=== PATIENT | male | born 1950 | race Caucasian/White ===

== ENCOUNTER 2016-10-03 11:42 | Emergency (ER) | payer MEDICARE ==
[~2016-10-03] VITALS: Ht 180.3 cm; Wt 79.3 kg
[2016-10-03 11:44] VITALS: BP 129/66; PULSE 77; RESP 15; TEMP 98.1; O2SAT 95
[2016-10-03] MEDS ORDERED: ADVA115A INH (11:59)
[2016-10-03] MEDS ORDERED: AMOX875T2 PO (11:59)
[2016-10-03] MEDS ORDERED: METO25TA3 PO (11:59)
[2016-10-03] MEDS ORDERED: ROSU1TAB8 PO (11:59)
[2016-10-03] MEDS ORDERED: PHENYLEPH/NS 1000 MCG/10 ML SYR IV ONE (12:00)
[2016-10-03] MEDS ORDERED: PROPOFOL 200 MG/20 ML AMP IV ONE (12:00)
[2016-10-03] MEDS ORDERED: NEOSTIGMINE 3 MG/3 ML SYR IV ONE (12:00)
[2016-10-03] MEDS ORDERED: ONDANSETRON HCL 4 MG/2 ML VIAL IV PUSH ONE (12:00)
[2016-10-03] MEDS ORDERED: SODIUM CHLOR 0.9% 1000 ML INJ 1,000 ML IV ONE (12:15)
[2016-10-03 12:55] LABS: AUTOMATED NEUTROPHIL # 4.9 TH/MM3 (1.8-7.7); BASOPHIL % 0.4 % (0.0-2.0); EOSINOPHIL % 0.7 % (0.0-4.0); HEMATOCRIT 36.9 % (39.0-51.0); HEMO FLAGS DIFF FINAL; LYMPH % 16.4 % (9.0-44.0); MEAN CELL VOLUME 99.3 FL (80.0-100.0); MEAN CORPUSCULAR HEMOGLOBIN 34.6 PG (27.0-34.0); MEAN CORPUSCULAR HGB CONC 34.8 % (32.0-36.0); MONO % 6.3 % (0.0-8.0); NEUT % 76.2 % (16.0-70.0); PLATELET COUNT 111 TH/MM3 (150-450); RED BLOOD COUNT 3.71 MIL/MM3 (4.50-5.90); RED CELL DISTRIBUTION WIDTH 13.4 % (11.6-17.2); WHITE BLOOD COUNT 6.4 TH/MM3 (4.0-11.0)
[2016-10-03 13:11] LABS: ANION GAP 9 MEQ/L (5-15); AST (GOT) 6 U/L (15-37); BICARBONATE 25.6 MEQ/L (21.0-32.0); BLOOD UREA NITROGEN 13 MG/DL (7-18); CHLORIDE 99 MEQ/L (98-107); GLOMERULAR FILTRATION RATE 48 ML/MIN (>89); POTASSIUM 3.8 MEQ/L (3.5-5.1); SODIUM (NA) 134 MEQ/L (136-145)
[2016-10-03 13:16] LABS: ALKALINE PHOSPHATASE 110 U/L (45-117); ALT (GPT) 13 U/L (12-78); TOTAL BILIRUBIN ADULT 0.9 MG/DL (0.2-1.0)
--- NOTE | 2016-10-03 13:21 | PD ---
HPI Chief Complaint: Abdominal Pain Time Seen by Provider: 12:11 Travel History International Travel<30 days: No Contact w/Intl Traveler<30days: No Traveled to known affect area: No History of Present Illness HPI Is a 66-year-old man presents emergent department for abdominal pain fevers and chills ongoing for 4 days or so. He states he was feeling well all for 5 days ago. He went out to dinner any more than he typically does. The next day had bloating and lower abdominal discomfort and thought he was constipated. Had a normal bowel movement the day before. Symptoms continued and he had some fevers and chills. He took some magnesium citrate as well as started some Augmentin, prescribed by Dr. Monroy, who is the patient's son-in-law. He felt a little bit improved after good response to magnesium citrate however he continues to have lower abdominal discomfort. Lower abdominal skin but worse on the right. He was positive for flu 2 weeks ago. About a month or so ago he also had a AAA repair done endovascularly in [facility]. No other complaints. History Past Medical History Narrative Medical AAA, status post endovascular para 1 month ago CVA, 2010, with expressive aphasia residual Renal stent CAD, history of CABG, bovine aortic valve replacement Hypertension Hyperlipidemia Tetanus Vaccination: > 5 Years Influenza Vaccination: Yes Social History Alcohol Use: Yes Tobacco Use: Yes Allergies-Medications (Allergen,Severity, Reaction): Coded Allergies: No Known Allergies (Unverified , 10/03/16) Reported Meds & Prescriptions Reported Meds & Active Scripts Active Reported Advair Hfa 12 GM Inh (Fluticasone-Salmeterol 12 GM Inh) 115-21 Mcg/Act Aer 2 Puff INH BID Metoprolol Tartrate 25 Mg Tab 25 Mg PO BID Rosuvastatin (Rosuvastatin Calcium) 20 Mg Tab 20 Mg PO DAILY Amoxicillin-Clavulanate 875-125 mg Tab 875 Mg PO BID not for use in CrCl <30 mL/minute Review of Systems Except as stated in HPI: all other systems reviewed are Neg Physical Exam Narrative GENERAL: Well-appearing 66 year-old man, no acute distress. SKIN: Warm and dry. CARDIOVASCULAR: Regular rate and rhythm. No murmur appreciated. RESPIRATORY: No accessory muscle use. Clear to auscultation. Breath sounds equal bilaterally. GASTROINTESTINAL: Abdomen is flat and soft. His a pretty good amount and guarding in the right lower quadrant. Some in the left as well. MUSCULOSKELETAL: No obvious deformities. No edema. NEUROLOGICAL: Awake and alert. No obvious cranial nerve deficits. Motor grossly within normal limits. Normal speech. PSYCHIATRIC: Appropriate mood and affect; insight and judgment normal. Data Data Last Documented VS Vital Signs Date Time Temp Pulse Resp B/P Pulse Ox O2 Delivery O2 Flow Rate FiO2 10/03/16 13:57 98.0 81 17 120/78 99 Room Air Orders Complete Blood Count With Diff (10/03/16 12:14) Comprehensive Metabolic Panel (10/03/16 12:14) Lipase (10/03/16 12:14) Lactic Acid (10/03/16 12:14) Urinalysis - C+S If Indicated (10/03/16 12:14) Iv Access Insert/Monitor (10/03/16 12:14) Sodium Chlor 0.9% 1000 Ml Inj (Ns 1000 M (10/03/16 12:15) Ct Abd/Pel W Iv Contrast(Rout) (10/03/16 ) Iohexol 350 Inj (Omnipaque 350 Inj) (10/03/16 14:11) Admit Order (Ed Use Only) (10/03/16 ) Labs Laboratory Tests Test 10/03/16 12:20 White Blood Count 6.4 TH/MM3 Red Blood Count 3.71 MIL/MM3 Hemoglobin 12.8 GM/DL Hematocrit 36.9 % Mean Corpuscular Volume 99.3 FL Mean Corpuscular Hemoglobin 34.6 PG Mean Corpuscular Hemoglobin 34.8 % Concent Red Cell Distribution Width 13.4 % Platelet Count 111 TH/MM3 Mean Platelet Volume 8.2 FL Neutrophils (%) (Auto) 76.2 % Lymphocytes (%) (Auto) 16.4 % Monocytes (%) (Auto) 6.3 % Eosinophils (%) (Auto) 0.7 % Basophils (%) (Auto) 0.4 % Neutrophils # (Auto) 4.9 TH/MM3 Lymphocytes # (Auto) 1.0 TH/MM3 Monocytes # (Auto) 0.4 TH/MM3 Eosinophils # (Auto) 0.0 TH/MM3 Basophils # (Auto) 0.0 TH/MM3 CBC Comment DIFF FINAL Differential Comment Sodium Level 134 MEQ/L Potassium Level 3.8 MEQ/L Chloride Level 99 MEQ/L Carbon Dioxide Level 25.6 MEQ/L Anion Gap 9 MEQ/L Blood Urea Nitrogen 13 MG/DL Creatinine 1.48 MG/DL Estimat Glomerular Filtration 48 ML/MIN Rate Random Glucose 102 MG/DL Lactic Acid Level 1.2 mmol/L Calcium Level 8.5 MG/DL Total Bilirubin 0.9 MG/DL Aspartate Amino Transf 6 U/L (AST/SGOT) Alanine Aminotransferase 13 U/L (ALT/SGPT) Alkaline Phosphatase 110 U/L Total Protein 7.3 GM/DL Albumin 3.2 GM/DL Lipase 102 U/L [facility] Medical Decision Making Medical Screen Exam Complete: Yes Emergency Medical Condition: Yes Interpretation(s) LABS: CBC remarkable for mild anemia. CMP is unremarkable. Creatinine 1.4 Lact[address] abdomen and pelvis: Acute appendicitis. Differential Diagnosis Appendicitis, diverticulitis, abscess, UTI, other Narrative Course Medical decision making 66-year-old male with lower abdominal discomfort, bloating, stool changes, fevers and chills, with right lower quadrant tenderness suggestive of either diverticulitis or appendicitis. We'll check labs, CT, fluids, reassess. FINAL: Patient with acute appendicitis. No evidence of perforation or abscess. Spoke with Dr. Solo, diagnostic cardiac sonographer for general surgery. We'll admit patient. Diagnosis Primary Impression: Acute appendicitis Qualified Code: K35.3 - Acute appendicitis with localized peritonitis Ellis Ferro MD Oct 03, 2016 13:21
[2016-10-03 13:57] VITALS: BP 120/78; PULSE 81; RESP 17; TEMP 98; O2SAT 99
[2016-10-03] MEDS ORDERED: IOHEXOL 350 MG/ML 10 ML VIAL (for RAD DIAG) IV ONE (14:11)
--- NOTE | 2016-10-03 14:39 | RADRPT ---
EXAM DATE/TIME: 10/03/2016 14:04 [place] COMPARISON: No previous studies available for comparison. INDICATIONS: Abdominal pain IV CONTRAST: 85 cc Omnipaque 350 (iohexol) IV ORAL CONTRAST: No oral contrast ingested. RADIATION DOSE: 8.56 CTDIvol (mGy) MEDICAL HISTORY: Cardiovascular disease. Hypertension. SURGICAL HISTORY: Non-responsive. AAA repair ENCOUNTER: Initial ACUITY: 1 day PAIN SCALE: 6/10 LOCATION: Right middle TECHNIQUE: Volumetric scanning of the abdomen and pelvis was performed. Using automated exposure control and ad justment of the mA and/or kV according to patient size, radiation dose was kept as low as reasonably achievable to obtain optimal diagnostic quality images. FINDINGS: CT scan of the abdomen and pelvis was performed with administration of IV and oral contrast. There i s significant inflammatory stranding in and around the appendix. The appendix is slightly thickened and fluid filled concerning for appendicitis. The adjacent cecum is unremarkable. Terminal ileum is unremarkable. The right kidney is atrophic. Left kidney is unremarkable. The liver, spleen, gallbladder and pancr eas are unremarkable. Patient has had aortic stent graft in good position. There is arthritic change of both hips. CONCLUSION: Significant inflammatory stranding around the appendix with some fluid in the appendix concerning for appendicitis. No evidence of perforation or abscess but there is some inflammatory stranding. Ellis Hirsch MD on October 03, 2016 at 14:23 Board Certified Radiologist. This report was verified electronically.
[2016-10-03] MEDS ORDERED: PIPERACIL-TAZO 3.375 GM PREMIX 50 ML IV ONE (15:00)
[2016-10-03 15:46] LABS: BLOOD, URINE NEG (NEG); COMMENT (UR) CULT NOT INDICATED; CULTURE IF INDICATED CULT NOT INDICATED; GLUCOSE,URINE NEG (NEG); HYALINE CAST, URINE 5 /lpf (RARE); KETONE, URINE 10 mg/dL (NEG); MUCUS URINE FEW /lpf (OCC); NITRITE,URINE NEG (NEG); URINE COLOR YELLOW (YELLW/STRAW)
[2016-10-03 15:47] VITALS: BP 148/70; PULSE 96; RESP 17; TEMP 97.8; O2SAT 99
[2016-10-03 16:58] VITALS: BP 123/66; PULSE 98; RESP 18; O2SAT 98
[2016-10-03] MEDS ORDERED: BUPIVACAINE/EPINEPHRINE 0.5% PF 30 ML VIAL ONE (17:20)
--- NOTE | 2016-10-03 17:35 | HHI.HP ---
HPI Service General surgery Primary Care Physician Olaf Monroy MD Admission Diagnosis acute appendicitis Chief Complaint: Abdominal pain History of Present Illness The patient is a 66-year-old male who presents with abdominal pain for approximately 4 days. Initially, who was in both lower quadrants and he was placed on Augmentin by Dr. Monroy who is his primary physician and his father-in- law. The patient thought that he was constipated and took magnesium citrate. After a couple of days the pain was localized in the right lower quadrant and it has persisted and therefore he presented to the emergency department. He has had no surgery on his abdomen. He does have an extensive cardiovascular disease history and recently underwent endovascular AAA repair. He has had a CVA as well as a CABG and AVR. He is not on blood thinners. Review of Systems Constitutional: COMPLAINS OF: Fever, Chills Eyes: DENIES: Eye inflammation, Eye pain Respiratory: DENIES: Cough, Sputum production Cardiovascular: DENIES: Chest pain, Palpitations Gastrointestinal: COMPLAINS OF: Abdominal pain, Nausea Integumentary: DENIES: Pruritus, Rash Past Family Social History Past Medical History CVA Hyperlipidemia Hypertension Coronary artery disease Alcohol abuse Tobacco use Past Surgical History Renal stent Endovascular AAA repair CABG Aortic valve replacement Reported Medications Reported Meds & Active Scripts Active Reported Advair Hfa 12 GM Inh (Fluticasone-Salmeterol 12 GM Inh) 115-21 Mcg/Act Aer 2 Puff INH BID Metoprolol Tartrate 25 Mg Tab 25 Mg PO BID Rosuvastatin (Rosuvastatin Calcium) 20 Mg Tab 20 Mg PO DAILY Amoxicillin-Clavulanate 875-125 mg Tab 875 Mg PO BID not for use in CrCl <30 mL/minute Allergies: Coded Allergies: No Known Allergies (Unverified , 10/03/16) Family History Noncontributory Social History The patient reportedly drinks a significant amount of liquor daily. He smokes about a pack cigarettes daily. Physical Exam Vital Signs Vital Signs Date Time Temp Pulse Resp B/P Pulse Ox O2 Delivery O2 Flow Rate FiO2 10/03/16 16:58 98 18 123/66 98 Room Air 10/03/16 15:47 97.8 96 17 148/70 99 Room Air 10/03/16 13:57 98.0 81 17 120/78 99 Room Air 10/03/16 12:03 17 10/03/16 11:44 98.1 77 15 129/66 95 Physical Exam GENERAL: Awake and alert. No acute distress. Cooperative. HEAD: Normocephalic. Atraumatic. EYES: Pupils equal round and reactive to light bilaterally. No scleral icterus. CHEST: Lungs clear to auscultation bilaterally with no wheezing or rhonchi. No respiratory distress. CARDIOVASCULAR: Regular rate and rhythm. ABDOMEN: Positive rebound tenderness in the right lower quadrant. Otherwise soft and nontender. EXTREMITIES: No cyanosis or edema. SKIN: Warm, dry, nonjaundiced. Laboratory Laboratory Tests Test 10/03/16 10/03/16 12:20 15:00 White Blood Count 6.4 Red Blood Count 3.71 Hemoglobin 12.8 Hematocrit 36.9 Mean Corpuscular Volume 99.3 Mean Corpuscular Hemoglobin 34.6 Mean Corpuscular Hemoglobin 34.8 Concent Red Cell Distribution Width 13.4 Platelet Count 111 Mean Platelet Volume 8.2 Neutrophils (%) (Auto) 76.2 Lymphocytes (%) (Auto) 16.4 Monocytes (%) (Auto) 6.3 Eosinophils (%) (Auto) 0.7 Basophils (%) (Auto) 0.4 Neutrophils # (Auto) 4.9 Lymphocytes # (Auto) 1.0 Monocytes # (Auto) 0.4 Eosinophils # (Auto) 0.0 Basophils # (Auto) 0.0 CBC Comment DIFF FINAL Differential Comment Sodium Level 134 Potassium Level 3.8 Chloride Level 99 Carbon Dioxide Level 25.6 Anion Gap 9 Blood Urea Nitrogen 13 Creatinine 1.48 Estimat Glomerular Filtration 48 Rate Random Glucose 102 Lactic Acid Level 1.2 Calcium Level 8.5 Total Bilirubin 0.9 Aspartate Amino Transf 6 (AST/SGOT) Alanine Aminotransferase 13 (ALT/SGPT) Alkaline Phosphatase 110 Total Protein 7.3 Albumin 3.2 Lipase 102 Urine Color YELLOW Urine Turbidity CLEAR Urine pH 6.0 Urine Specific [place] 1.017 Urine Protein TRACE Urine Glucose (UA) NEG Urine Ketones 10 Urine Occult Blood NEG Urine Nitrite NEG Urine Bilirubin NEG Urine Urobilinogen LESS THAN 2.0 Urine Leukocyte Esterase NEG Urine RBC LESS THAN 1 Urine WBC LESS THAN 1 Urine Hyaline Casts 5 Urine Mucus FEW Microscopic Urinalysis Comment CULT NOT INDICATED Result Diagram: 10/03/16 1220 10/03/16 1220 Imaging Last Impressions Abdomen/Pelvis CT 10/03/16 0000 Signed Impressions: Service Date/Time: Monday, October 03, 2016 14:04 - CONCLUSION: Significant inflammatory stranding around the appendix with some fluid in the appendix concerning for appendicitis. No evidence of perforation or abscess but there is some inflammatory stranding. Ellis Hirsch MD Assessment and Plan Assessment and Plan The patient is a 66-year-old male with about 4 days of abdominal pain and evaluation consistent with acute appendicitis. There is no obvious abscess or phlegmon present. He does have significant cardiovascular disease. However, I would recommend to go ahead and proceed with laparoscopic, possible open appendectomy. I discussed the case with Dr. Monroy who agrees. Hopefully, he' ll be able to be discharged home tomorrow. Agustin Solo MD Oct 03, 2016 17:35
[2016-10-03] MEDS ORDERED: ZOLPIDEM TARTRATE 5 MG TAB PO PRN (17:45)
[2016-10-03] MEDS ORDERED: SODIUM CHLORIDE 0.9% FLUSH 5 ML FLUSH FLUSH PRN (17:45)
[2016-10-03] MEDS ORDERED: SENNOSIDES 8.6 MG TAB PO PRN (17:45)
[2016-10-03] MEDS ORDERED: NALOXONE HCL 0.4 MG/ML AMP IV PRN (17:45)
[2016-10-03] MEDS ORDERED: ONDANSETRON HCL 4 MG/2 ML VIAL IVP PRN (17:45)
[2016-10-03] MEDS ORDERED: ACETAMINOPHEN 325 MG TAB PO PRN (17:45)
[2016-10-03] MEDS ORDERED: BISACODYL 10 MG SUPP PR PRN (17:45)
[2016-10-03] MEDS ORDERED: MAGNESIUM HYDROXIDE SUSP 30 ML CUP PO PRN (17:45)
--- NOTE | 2016-10-03 17:52 | HHI.HP ---
History of Present Illness Primary Care Physician Olaf Monroy MD Admission Diagnosis acute appendicitis Diagnoses: History of Present Illness 66 Y CM. FOUR DAYS OF ABD PAIN. I STARTED HIM ON AUGMENTIN FOR DIVERTICULITIS, AND MAG CITRATE FOR CONSTIP. SENT TO ER FOLLOWING DAY W FINDINGS BELOW. D/W DR PARNELL. SURGEON JUST CALLED ME AND AGREE W EMERGENT SURGERY. D/W ETOH AND TOBACOISM HX. Review of Systems Constitutional: COMPLAINS OF: Fever, Chills Respiratory: COMPLAINS OF: Cough, Wheezing Gastrointestinal: COMPLAINS OF: Constipation, Nausea Except as stated in HPI: all other systems reviewed are Neg Past Family Social History Allergies: Coded Allergies: No Known Allergies (Unverified , 10/03/16) Past Medical History Past Medical History Narrative Medical AAA, status post endovascular para 1 month ago CVA, 2010, with expressive aphasia residual Renal stent CAD, history of CABG, bovine aortic valve replacement Hypertension Hyperlipidemia Tetanus Vaccination: > 5 Years Influenza Vaccination: Yes Social History Alcohol Use: Yes Tobacco Use: Yes Allergies-Medications Allergies-Medications (Allergen,Severity, Reaction): Coded Allergies: No Known Allergies (Unverified , 10/03/16) Reported Meds & Prescriptions Reported Meds & Active Scripts Active Reported Advair Hfa 12 GM Inh (Fluticasone-Salmeterol 12 GM Inh) 115-21 Mcg/Act Aer 2 Puff INH BID Metoprolol Tartrate 25 Mg Tab 25 Mg PO BID Rosuvastatin (Rosuvastatin Calcium) 20 Mg Tab 20 Mg PO DAILY Amoxicillin-Clavulanate 875-125 mg Tab 875 Mg PO BID not for use in CrCl <30 mL/minute Physical Exam Vital Signs Vital Signs Date Time Temp Pulse Resp B/P Pulse Ox O2 Delivery O2 Flow Rate FiO2 10/03/16 16:58 98 18 123/66 98 Room Air 10/03/16 15:47 97.8 96 17 148/70 99 Room Air 10/03/16 13:57 98.0 81 17 120/78 99 Room Air 10/03/16 12:03 17 10/03/16 11:44 98.1 77 15 129/66 95 Physical Exam GENERAL: This is a well-nourished, well-developed patient, in no apparent distress. SKIN: No rashes, ecchymoses or lesions. Cool and dry. HEAD: Atraumatic. Normocephalic. No temporal or scalp tenderness. EYES: Pupils equal round and reactive. Extraocular motions intact. No scleral icterus. No injection or drainage. ENT: Nose without bleeding, purulent drainage or septal hematoma. Throat without erythema, tonsillar hypertrophy or exudate. Uvula midline. Airway patent. NECK: Trachea midline. No JVD or lymphadenopathy. Supple, nontender, no meningeal signs. CARDIOVASCULAR: Regular rate and rhythm without murmurs, gallops, or rubs. RESPIRATORY: Clear to auscultation. Breath sounds equal bilaterally. No wheezes , rales, or rhonchi. GASTROINTESTINAL: Abdomen soft, TTP, POS R/G MUSCULOSKELETAL: Extremities without clubbing, cyanosis, or edema. No joint tenderness, effusion, or edema noted. No calf tenderness. Negative Homans sign bilaterally. NEUROLOGICAL: Awake and alert. Cranial nerves II through XII intact. Motor and sensory grossly within normal limits. Five out of 5 muscle strength in all muscle groups. Normal speech. Laboratory Laboratory Tests Test 10/03/16 10/03/16 12:20 15:00 White Blood Count 6.4 Red Blood Count 3.71 Hemoglobin 12.8 Hematocrit 36.9 Mean Corpuscular Volume 99.3 Mean Corpuscular Hemoglobin 34.6 Mean Corpuscular Hemoglobin 34.8 Concent Red Cell Distribution Width 13.4 Platelet Count 111 Mean Platelet Volume 8.2 Neutrophils (%) (Auto) 76.2 Lymphocytes (%) (Auto) 16.4 Monocytes (%) (Auto) 6.3 Eosinophils (%) (Auto) 0.7 Basophils (%) (Auto) 0.4 Neutrophils # (Auto) 4.9 Lymphocytes # (Auto) 1.0 Monocytes # (Auto) 0.4 Eosinophils # (Auto) 0.0 Basophils # (Auto) 0.0 CBC Comment DIFF FINAL Differential Comment Sodium Level 134 Potassium Level 3.8 Chloride Level 99 Carbon Dioxide Level 25.6 Anion Gap 9 Blood Urea Nitrogen 13 Creatinine 1.48 Estimat Glomerular Filtration 48 Rate Random Glucose 102 Lactic Acid Level 1.2 Calcium Level 8.5 Total Bilirubin 0.9 Aspartate Amino Transf 6 (AST/SGOT) Alanine Aminotransferase 13 (ALT/SGPT) Alkaline Phosphatase 110 Total Protein 7.3 Albumin 3.2 Lipase 102 Urine Color YELLOW Urine Turbidity CLEAR Urine pH 6.0 Urine Specific [place] 1.017 Urine Protein TRACE Urine Glucose (UA) NEG Urine Ketones 10 Urine Occult Blood NEG Urine Nitrite NEG Urine Bilirubin NEG Urine Urobilinogen LESS THAN 2.0 Urine Leukocyte Esterase NEG Urine RBC LESS THAN 1 Urine WBC LESS THAN 1 Urine Hyaline Casts 5 Urine Mucus FEW Microscopic Urinalysis Comment CULT NOT INDICATED Result Diagram: 10/03/16 1220 10/03/16 1220 Imaging Last 72 hours Impressions Abdomen/Pelvis CT 10/03/16 0000 Signed Impressions: Service Date/Time: Monday, October 03, 2016 14:04 - CONCLUSION: Significant inflammatory stranding around the appendix with some fluid in the appendix concerning for appendicitis. No evidence of perforation or abscess but there is some inflammatory stranding. Ellis Hirsch MD Assessment and Plan Problem List: (1) Acute appendicitis Status: Acute Assessment and Plan ACUTE ABDOMEN ACUTE APPENDICITIS COPD HTN AAA S/P REPAIR S/P AVR PAD ALCOHOLISM ACTIVE SMOKER PLAN: D/W [place]. AGREE WITH EMERGENT SURGERY. CIWA NPO AM LABS TELE OBS ADMIT Problem Qualifiers (1) Acute appendicitis: Qualified Code: K35.3 - Acute appendicitis with localized peritonitis Olaf Monroy MD Oct 03, 2016 17:52
[2016-10-03 17:54] VITALS: O2SAT 98
[2016-10-03] MEDS: BUPIVACAINE/EPINEPHRINE 0.25% PF 30 ML VIAL ONE ×2 (17:55→18:57)
[2016-10-03] MEDS ORDERED: LORazepam 1 MG TAB PO PRN (18:00)
[2016-10-03] MEDS ORDERED: FLUMAZENIL 0.5 MG/5 ML VIAL IV PUSH PRN (18:00)
[2016-10-03] MEDS ORDERED: LORazepam 2 MG/ML VIAL IV PUSH PRN ×4 (18:00)
[2016-10-03] MEDS ORDERED: LORazepam 2 MG TAB PO PRN (18:00)
[2016-10-03] MEDS ORDERED: FAMOTIDINE 20 MG/2 ML VIAL ONE (18:20)
[2016-10-03] MEDS ORDERED: DEXAMETHASONE SOD PHOS 4 MG/ML VIAL ONE (18:20)
[2016-10-03] MEDS ORDERED: fentaNYL CITRATE 250 MCG/5 ML AMP ONE ×2 (18:20→20:08)
[2016-10-03] MEDS ORDERED: MIDAZOLAM HCL 2 MG/2 ML VIAL ONE (18:20)
[2016-10-03] MEDS ORDERED: ACETAMINOPHEN 1000 MG/100 ML VIAL IV ONE (18:20)
[2016-10-03] MEDS ORDERED: oxyCODONE/ACETAMINOPHEN 5 MG/325 MG TAB PO PRN ×2 (20:00)
[2016-10-03] MEDS ORDERED: MORPHINE SULFATE 4 MG/ML INJ IV PUSH PRN (20:00)
--- NOTE | 2016-10-03 20:00 | PD.OP ---
cc: Agustin Solo MD; Olaf Monroy MD Operative Report Date of Surgery: Oct 03, 2016 Preoperative Diagnosis: (1) Acute appendicitis (2) Umbilical hernia Postoperative Diagnosis: (1) Acute appendicitis (2) Umbilical hernia Procedure: Laparoscopic appendectomy, open primary repair of umbilical hernia Anesthesia: KESHIA Surgeon: Agustin Solo Insert Cutter(s): Hanh Aguilar CFA Operation and Findings: EBL: 5 cc Complications: None apparent Operative findings: The distal half of the appendix was inflamed and dilated and there was a large phlegmon involving the periappendiceal fat. The terminal ileum was adherent to the phlegmon and there was some exudate present. There was no espinoza pus. The base of the appendix appeared healthy. The patient had a small umbilical hernia which was repaired primarily. Procedure in detail: The patient was taken to the operating room placed in the supine position with left arm tucked. General endotracheal anesthesia was induced and the abdomen was prepped and draped in usual sterile fashion. Surgical timeout was performed to verify correct patient procedure and site. Perioperative antibiotics were administered as necessary. Local anesthetic was injected in the skin and subcutaneous tissue at the inferior umbilicus and a 10 mm incision made. Rojo technique was used to gain access through the proximally 1 cm umbilical hernia. The 12 mm port was placed at this site. The abdomen was then insufflated to 15 mmHg with CO2 gas which the patient tolerated well. The patient was then placed in Trendelenburg position and turned slightly to the left. A 5 mm port was placed under laparoscopic visualization of the lower abdomen and a 5 mm port in the suprapubic area. Attention was turned to the right lower quadrant and there was a large phlegmon present. There was exudative material present. Careful blunt dissection was used to take the terminal ileum from the phlegmon. The appendix was then freed and noted to have inflammation and large phlegmon in the distal portion. There was no espinoza pus. Some lateral attachments of the appendix and cecum were taken down with the Harmonic scalpel. Next, the mesoappendix was taken down with the Harmonic scalpel. Two #1 PDS Endoloops were placed at the base the appendix and the appendix transected with Harmonic scalpel. It was then removed using an Endo Catch bag. The appendiceal stump was intact with no leakage. The right lower quadrant, pelvis and right upper quadrant were copiously irrigated. The abdomen was allowed to desufflate and trochars removed. Subcutaneous tissue was cleared from the umbilical fascia just for a few millimeters and the umbilical fascia was closed with simple interrupted 0 Ethibond suture. Skin was closed with subcuticular Monocryl as well as Dermabond. The patient tolerated the procedure well was extubated and taken to PACU in stable condition. Agustin Solo MD Oct 03, 2016 20:00
[2016-10-03] MEDS: metroNIDAZOLE 500 MG INJ 100 ML IV SCH (20:30)
[2016-10-03] MEDS: DOCUSATE SODIUM 100 MG CAP PO SCH (21:00)
[2016-10-03] MEDS ORDERED: METOPROLOL TARTRATE 25 MG TAB PO SCH (21:00)
[2016-10-03] MEDS: SODIUM CHLORIDE 0.9% FLUSH 5 ML FLUSH FLUSH SCH (22:14)
[2016-10-03] MEDS: PIPERACIL-TAZO 3.375 GM PREMIX 50 ML IV SCH (22:14)
[2016-10-03] MEDS ORDERED: ATORVASTATIN 40 MG TAB PO SCH (22:15)
[2016-10-03] MEDS ORDERED: PILL SPLITTER OTHER PRN (22:30)
[2016-10-04 00:27] VITALS: BP 112/62; PULSE 72; RESP 20; TEMP 96.8; O2SAT 95
[2016-10-04] MEDS: PIPERACIL-TAZO 3.375 GM PREMIX 50 ML IV SCH ×2 (03:56→08:12)
[2016-10-04 04:26] VITALS: BP 130/74; PULSE 81; RESP 20; TEMP 95.4; O2SAT 93
[2016-10-04] MEDS: metroNIDAZOLE 500 MG INJ 100 ML IV SCH ×2 (04:32→11:09)
[2016-10-04 06:04] LABS: AUTOMATED NEUTROPHIL # 5.9 TH/MM3 (1.8-7.7); BASOPHIL % 0.1 % (0.0-2.0); HEMATOCRIT 35.2 % (39.0-51.0); HEMO FLAGS DIFF FINAL; LYMPHOCYTE # 0.4 TH/MM3 (1.0-4.8); MEAN CELL VOLUME 100.1 FL (80.0-100.0); MEAN CORPUSCULAR HEMOGLOBIN 34.5 PG (27.0-34.0); MEAN CORPUSCULAR HGB CONC 34.4 % (32.0-36.0); MONO % 2.2 % (0.0-8.0); NEUT % 91.7 % (16.0-70.0); PLATELET COUNT 105 TH/MM3 (150-450); RED BLOOD COUNT 3.51 MIL/MM3 (4.50-5.90); RED CELL DISTRIBUTION WIDTH 13.5 % (11.6-17.2); WHITE BLOOD COUNT 6.4 TH/MM3 (4.0-11.0)
[2016-10-04 06:34] LABS: ALKALINE PHOSPHATASE 96 U/L (45-117); ALT (GPT) 11 U/L (12-78); ANION GAP 10 MEQ/L (5-15); AST (GOT) 5 U/L (15-37); BICARBONATE 25.9 MEQ/L (21.0-32.0); BLOOD UREA NITROGEN 11 MG/DL (7-18); CHLORIDE 100 MEQ/L (98-107); GLOMERULAR FILTRATION RATE 55 ML/MIN (>89); POTASSIUM 4.4 MEQ/L (3.5-5.1); SODIUM (NA) 136 MEQ/L (136-145); TOTAL BILIRUBIN ADULT 0.6 MG/DL (0.2-1.0)
[2016-10-04 08:00] VITALS: BP 125/73; PULSE 66; RESP 18; TEMP 97; O2SAT 94
[2016-10-04] MEDS: DOCUSATE SODIUM 100 MG CAP PO SCH (08:11)
[2016-10-04] MEDS: SODIUM CHLORIDE 0.9% FLUSH 5 ML FLUSH FLUSH SCH (08:12)
[2016-10-04] MEDS ORDERED: LORA-373 PO (08:45)
[2016-10-04] MEDS ORDERED: DOCU1CAP39 PO (08:45)
[2016-10-04] MEDS ORDERED: OXYC1TAB63 PO (08:45)
[2016-10-04] MEDS ORDERED: MIRA33504 PO (08:47)
[2016-10-04] MEDS ORDERED: NYST1000 SWISH-SWAL (08:47)
[2016-10-04] MEDS ORDERED: SENN1TAB2 PO (08:47)
--- NOTE | 2016-10-04 08:48 | HHI.DCPOC ---
Discharge Care Plan Diagnosis: (1) Acute appendicitis (2) Gangrenous appendicitis (3) Umbilical hernia Your Health Problems Are: Inflammation Goals to Promote Your Health * To prevent worsening of your condition and complications * To maintain your health at the optimal level Directions to Meet Your Goals Take your medications as prescribed Follow your dietary instruction Follow activity as directed Keep your appointments as scheduled Take your immunizations and boosters as scheduled If your symptoms worsen call your PCP, if no PCP go to Urgent Care Center or Emergency Room Smoking is Dangerous to Your Health. Avoid second hand smoke Call the 24-hour hour crisis hotline for domestic abuse at Olaf Monroy MD Oct 04, 2016 08:48
--- NOTE | 2016-10-04 08:51 | HHI.DS ---
Discharge Summary Admission Date Oct 03, 2016 at 14:39 Discharge Date: Oct 04, 2016 Admitting Diagnosis acute appendicitis (1) Acute appendicitis (2) Umbilical hernia (3) Gangrenous appendicitis Brief History 66 Y CM. FOUR DAYS OF ABD PAIN. I STARTED HIM ON AUGMENTIN FOR DIVERTICULITIS, AND MAG CITRATE FOR CONSTIP. SENT TO ER FOLLOWING DAY W FINDINGS BELOW. D/W DR PARNELL. SURGEON JUST CALLED ME AND AGREE W EMERGENT SURGERY. D/W ETOH AND TOBACOISM HX. CBC/BMP: 10/04/16 0511 10/04/16 0511 Significant Findings Laboratory Tests Test 10/03/16 10/03/16 10/04/16 12:20 15:00 05:11 Red Blood Count 3.71 MIL/MM3 3.51 MIL/MM3 (4.50-5.90) (4.50-5.90) Hemoglobin 12.8 GM/DL 12.1 GM/DL (13.0-17.0) (13.0-17.0) Hematocrit 36.9 % 35.2 % (39.0-51.0) (39.0-51.0) Mean Corpuscular Hemoglobin 34.6 PG 34.5 PG (27.0-34.0) (27.0-34.0) Platelet Count 111 TH/MM3 105 TH/MM3 (150-450) (150-450) Neutrophils (%) (Auto) 76.2 % 91.7 % (16.0-70.0) (16.0-70.0) Sodium Level 134 MEQ/L (136-145) Creatinine 1.48 MG/DL (0.60-1.30) Estimat Glomerular Filtration 48 ML/MIN (>89) 55 ML/MIN (>89) Rate Aspartate Amino Transf 6 U/L (15-37) 5 U/L (15-37) (AST/SGOT) Albumin 3.2 GM/DL 2.7 GM/DL (3.4-5.0) (3.4-5.0) Urine Ketones 10 mg/dL (NEG) Urine Mucus FEW /lpf (OCC) Mean Corpuscular Volume 100.1 FL (80.0-100.0) Lymphocytes (%) (Auto) 6.0 % (9.0-44.0) Lymphocytes # (Auto) 0.4 TH/MM3 (1.0-4.8) Random Glucose 155 MG/DL (74-106) Alanine Aminotransferase 11 U/L (12-78) (ALT/SGPT) Imaging Last 72 hours Impressions Abdomen/Pelvis CT 10/03/16 0000 Signed Impressions: Service Date/Time: Monday, October 03, 2016 14:04 - CONCLUSION: Significant inflammatory stranding around the appendix with some fluid in the appendix concerning for appendicitis. No evidence of perforation or abscess but there is some inflammatory stranding. Ellis Hirsch MD PE at Discharge GENERAL: Pacing about, walking, asking to discharge SKIN: Warm and dry. HEAD: Atraumatic. Normocephalic. EYES: Pupils equal and round. No scleral icterus. No injection or drainage. ENT: No nasal bleeding or discharge. Mucous membranes pink and moist. NECK: Trachea midline. No JVD. CARDIOVASCULAR: Regular rate and rhythm. RESPIRATORY: No accessory muscle use. Clear to auscultation. Breath sounds equal bilaterally. GASTROINTESTINAL: Abdomen soft, nondistended. Hepatic and splenic margins not palpable. slightly TTP all quads MUSCULOSKELETAL: Extremities without clubbing, cyanosis, or edema. No obvious deformities. NEUROLOGICAL: Awake and alert. No obvious cranial nerve deficits. Motor grossly within normal limits. Five out of 5 muscle strength in the arms and legs. Normal speech. PSYCHIATRIC: Appropriate mood and affect; insight and judgment normal. Hospital Course 66y CM. ADMIT FOR EMERGENT LAP APPY. D/W DR WOOD HS, SUGGESTED DC HOME IF STABLE TODAY; PT W ANXIETY, ALCOHOLISM. SL COUGH, HX COPD, VT, CVA. WHITISH LEUKOPLAKIA ON EXAM. FOLLOWED CLOSELY BY ME OUTPT. PT ASKING TO BE D/C'D NOW. TAKING LIQUIDS. Discharge Instructions Follow up Referrals: PCP Follow-up - 2-3 Days Surgical - 1 Week with Agustin Wood MD New Medications: Lorazepam (Lorazepam) 0.5 Mg Tab 0.5 MG PO Q6H PRN ANXIETY #30 Ref 0 TAB Nystatin Liq (Nystatin Liq) 100,000 unit/ml Susp 5 ML SWISH-SWAL QID Infection Days 14 Ref 5 ML Polyethylene Glycol 3350 Powder (Miralax Powder) 17 Gm Powd 17 GM PO DAILY Mix and dissolve one measuring cap-ful (17 grams) in water or juice. Constipation Days 90 Ref 11 BOTTLE Sennosides-Docusate Sodium (Senna-Docusate Sodium) 8.6-50 Mg Tab 2 TAB PO DAILY Constipation #90 Ref 11 TAB Docusate Sodium (Dok) 100 Mg Cap 100 MG PO Q12H Constipation Days 90 Ref 11 CAP Oxycodone-Acetaminophen (Oxycodone-Acetaminophen) 5-325 mg Tab 1 TAB PO Q4H PRN PAIN GREATER THAN 6 #30 Ref 0 TAB Continued Medications: Amoxicillin-Clavulanate (Amoxicillin-Clavulanate) 875-125 mg Tab 875 MG PO BID not for use in CrCl <30 mL/minute Infection Ref 0 TAB Fluticasone-Salmeterol 12 GM Inh (Advair Hfa 12 GM Inh) 115-21 Mcg/Act Aer 2 PUFF INH BID #1 Ref 0 INHALER Metoprolol Tartrate (Metoprolol Tartrate) 25 Mg Tab 25 MG PO BID #60 Ref 0 TAB Rosuvastatin (Rosuvastatin) 20 Mg Tab 20 MG PO DAILY Cholesterol Management #30 Ref 0 TAB Olaf Monroy MD Oct 04, 2016 08:51
[2016-10-04] MEDS ORDERED: ATORVASTATIN 40 MG TAB PO SCH (09:00)
[2016-10-04] MEDS ORDERED: METOPROLOL TARTRATE 25 MG TAB PO SCH (09:00)
[2016-10-04] MEDS ORDERED: ADVAIR INH SCH (09:00)
[2016-10-04 11:23] VITALS: O2SAT 92
--- NOTE | 2016-10-04 12:06 | HHI.PR ---
Subjective Subjective Notes Jerson liquids. Feels much better. Pain controlled. Would like to go home. Objective Vitals/I&O Vital Signs Date Time Temp Pulse Resp B/P Pulse Ox O2 Delivery O2 Flow Rate FiO2 10/04/16 11:23 92 21 10/04/16 08:00 97.0 66 18 125/73 10/03/16 21:05 Nasal Cannula 2 Labs Laboratory Tests Test 10/03/16 10/03/16 10/04/16 12:20 15:00 05:11 White Blood Count 6.4 6.4 Red Blood Count 3.71 3.51 Hemoglobin 12.8 12.1 Hematocrit 36.9 35.2 Mean Corpuscular Volume 99.3 100.1 Mean Corpuscular Hemoglobin 34.6 34.5 Mean Corpuscular Hemoglobin 34.8 34.4 Concent Red Cell Distribution Width 13.4 13.5 Platelet Count 111 105 Mean Platelet Volume 8.2 8.2 Neutrophils (%) (Auto) 76.2 91.7 Lymphocytes (%) (Auto) 16.4 6.0 Monocytes (%) (Auto) 6.3 2.2 Eosinophils (%) (Auto) 0.7 0.0 Basophils (%) (Auto) 0.4 0.1 Neutrophils # (Auto) 4.9 5.9 Lymphocytes # (Auto) 1.0 0.4 Monocytes # (Auto) 0.4 0.1 Eosinophils # (Auto) 0.0 0.0 Basophils # (Auto) 0.0 0.0 CBC Comment DIFF FINAL DIFF FINAL Differential Comment Sodium Level 134 136 Potassium Level 3.8 4.4 Chloride Level 99 100 Carbon Dioxide Level 25.6 25.9 Anion Gap 9 10 Blood Urea Nitrogen 13 11 Creatinine 1.48 1.30 Estimat Glomerular Filtration 48 55 Rate Random Glucose 102 155 Lactic Acid Level 1.2 Calcium Level 8.5 8.5 Total Bilirubin 0.9 0.6 Aspartate Amino Transf 6 5 (AST/SGOT) Alanine Aminotransferase 13 11 (ALT/SGPT) Alkaline Phosphatase 110 96 Total Protein 7.3 6.5 Albumin 3.2 2.7 Lipase 102 Urine Color YELLOW Urine Turbidity CLEAR Urine pH 6.0 Urine Specific [place] 1.017 Urine Protein TRACE Urine Glucose (UA) NEG Urine Ketones 10 Urine Occult Blood NEG Urine Nitrite NEG Urine Bilirubin NEG Urine Urobilinogen LESS THAN 2.0 Urine Leukocyte Esterase NEG Urine RBC LESS THAN 1 Urine WBC LESS THAN 1 Urine Hyaline Casts 5 Urine Mucus FEW Microscopic Urinalysis Comment CULT NOT INDICATED Radiology Last Impressions Abdomen/Pelvis CT 10/03/16 0000 Signed Impressions: Service Date/Time: Monday, October 03, 2016 14:04 - CONCLUSION: Significant inflammatory stranding around the appendix with some fluid in the appendix concerning for appendicitis. No evidence of perforation or abscess but there is some inflammatory stranding. Ellis Hirsch MD Narrative Exam NAD Abd: moderate distention, min post op ttp, inc c/d/i A/P Assessment and Plan 66 yo M POD 1 s/p lap appy, doing well. D/c home. D/w Dr. Monroy. I recommended to the patient a bland and light diet for a couple of days. He should take augmentin which he already has for 3 days. Stable condition. F/u with me in 3 weeks. Rx for percocet. Activity- avoid heavy lifting. Agustin Solo MD Oct 04, 2016 12:06
[2016-10-05] MEDS ORDERED: PNEUMOCOCCAL POLYVALENT INJ 25 MCG/0.5 ML SYR IM ONE (10:00)
[2016-10-05] MEDS ORDERED: INFLUENZA VIRUS VACCINE (QUADRIVALENT) 0.5 ML SYR IM ONE (10:00)
== END 2016-10-04 13:05 | disposition home or self-care (01) ==
LOC: NEPC 11:42 → UNDOADMIN 14:39 → NEDA 14:39 → N06A 21:26 → NEPC 10-04 13:05 → UNDODISIN 10-04 13:05
DX: K35.3 Acute appendicitis with localized peritonitis (principal); I10 Essential (primary) hypertension; I25.10 Atherosclerotic heart disease of native coronary artery without angina pectoris; Z72.0 Tobacco use; Z95.1 Presence of aortocoronary bypass graft; Z95.3 Presence of xenogenic heart valve
CPT/HCPCS: 00832; 44970; 49587; 74177; 80053; 81001; 83605; 83690; 85025; 88304; 96360; 97161; 99285; J0131; J1100; J2370; J2405; J2543; J2710; J3010; J7030; Q9967; 96361; 96365; J2250